=== PATIENT | female | born 1985 | race Caucasian/White ===

== ENCOUNTER 2017-08-01 20:33 | Emergency (ER) | payer MEDICAID, OTHER, SELFPAY ==
[~2017-08-01] VITALS: Ht 172.7 cm; Wt 62.9 kg
[2017-08-01] MEDS ORDERED: ALBUTEROL/IPRATROPIUM 2.5MG/0.5MG, 3 ML ONE (21:00)
[2017-08-01] MEDS ORDERED: ALBUTEROL/IPRATROPIUM 2.5MG/0.5MG, 3 ML NPPB SCH (21:00)
[2017-08-01 21:35] VITALS: BP 94/63
== END 2017-08-01 21:36 | disposition home or self-care (01) ==
LOC: ED 21:02
DX: J45.41 Moderate persistent asthma with (acute) exacerbation (principal)
CPT/HCPCS: 93005; 94640; 99283; J7512; J7620

== ENCOUNTER 2017-12-18 23:08 | Emergency (ER) | payer MEDICAID ==
[~2017-12-18] VITALS: Ht 172.7 cm; Wt 66.0 kg
[2017-12-18] MEDS ORDERED: PROAIR (23:23)
[2017-12-19 00:29] VITALS: BP 97/58
== END 2017-12-19 01:24 | disposition home or self-care (01) ==
LOC: ED 23:59
DX: J45.41 Moderate persistent asthma with (acute) exacerbation (principal); F17.200 Nicotine dependence, unspecified, uncomplicated
CPT/HCPCS: 71046; 93005; 99284; J7512

== ENCOUNTER 2018-01-07 00:03 | Inpatient (IN) | payer MEDICAID ==
[~2018-01-07] VITALS: Ht 165.1 cm; Wt 70.7 kg
[~2018-01-07 00:03] MED LIST: PROAIR
[2018-01-07] MEDS ORDERED: methylPREDNISolone SOD SUCC 125 MG/2 ML ONE (00:28)
[2018-01-07] MEDS ORDERED: methylPREDNISolone SOD SUCC 125 MG/2 ML IVP ONE (00:30)
[2018-01-07] MEDS ORDERED: ALBUTEROL/IPRATROPIUM 2.5MG/0.5MG, 3 ML NPPB SCH (00:30)
[2018-01-07] MEDS ORDERED: ALBUTEROL SULFATE 2.5 MG/3 ML ONE (00:48)
[2018-01-07] MEDS ORDERED: HYDROcodone/APAP 5/325 TABLET ONE (00:57)
[2018-01-07] MEDS ORDERED: HYDROcodone/APAP 5/325 TABLET PO ONE (01:00)
[2018-01-07] MEDS ORDERED: SODIUM CHLORIDE 0.9% 1,000ML IVBOLUS ONE (01:30)
[2018-01-07 01:36] LABS: MEAN CORPUSCULAR HEMOGLOBIN 31.4 pg (27.0-34.8); MEAN CORPUSCULAR HGB CONC 32.9 g/dL (32.4-35.8); MEAN CORPUSCULAR VOLUME 95.5 fL (80-100); MEAN PLATELET VOLUME 8.6 fL (7.4-10.4); PLATELET COUNT 299 x10^3/uL (130-400); RED BLOOD COUNT 4.43 x10^6/uL (3.82-5.3); RED CELL DISTRIBUTION WIDTH 13.3 % (9.6-15.2)
[2018-01-07 01:44] LABS: CHLORIDE 110 mmol/L (98-107)
[2018-01-07 01:45] LABS: ALBUMIN 3.3 g/dL (3.4-5.0); ANION GAP 6 mmol/L (5-15); CALCIUM 8.5 mg/dL (8.5-10.1); CREATININE 0.84 mg/dL (0.55-1.02)
[2018-01-07 01:50] LABS: BASOPHILS # (AUTO) 0.11 x10^3/uL (0-0.1); BASOPHILS % (AUTO) 1 % (0-1); EOSINOPHILS # (AUTO) 1.79 x10^3/uL (0-0.4); EOSINOPHILS % (AUTO) 13 % (1-7); LYMPHOCYTES # (AUTO) 3.53 x10^3/uL (1-3.4); LYMPHOCYTES % (AUTO) 26 % (22-44); MD SCAN; MONOCYTES % (AUTO) 9 % (2-9); NEUTROPHILS # (AUTO) 7.09 x10^3/uL (1.8-6.8); NEUTROPHILS % (AUTO) 52 % (42-75)
[2018-01-07] MEDS ORDERED: CEFTRIAXONE PMX 1GM/50ML 50 ML ONE (02:48)
[2018-01-07] MEDS ORDERED: CEFTRIAXONE PMX 1GM/50ML 50 ML IV ONE (03:00)
[2018-01-07] MEDS ORDERED: AZITHROMYCIN 500 MG in SODIUM CHLORIDE 0.9% 250 ML IV ONE (03:00)
[2018-01-07 03:30] VITALS: BP 100/68
[2018-01-07] MEDS ORDERED: hydrALAzine 20 MG/ML, 1ML IVPush PRN (04:30)
[2018-01-07] MEDS ORDERED: ONDANSETRON 2MG/ML, 2ML IVPush PRN (04:30)
[2018-01-07] MEDS ORDERED: ALBUTEROL SULFATE 2.5 MG/3 ML NPPB PRN ×2 (04:30)
[2018-01-07] MEDS ORDERED: HYDROcodone/APAP 5/325 TABLET PO PRN (04:30)
[2018-01-07] MEDS ORDERED: CEFTRIAXONE PMX 1GM/50ML 50 ML IV SCH (04:30)
[2018-01-07] MEDS ORDERED: ACETAMINOPHEN 325 MG TABLET PO PRN (04:30)
[2018-01-07] MEDS ORDERED: POLYETHYLENE GLYCOL 17 GM PACKET PO PRN (04:30)
[2018-01-07] MEDS ORDERED: MONTELUKAST 10 MG TABLET PO SCH (04:30)
[2018-01-07] MEDS ORDERED: ENOXAPARIN 40 MG/0.4 ML SQ SCH (04:30)
[2018-01-07] MEDS ORDERED: GUAIFENESIN/DM 200-20MG, 10ML UDC PO PRN (04:30)
[2018-01-07] MEDS ORDERED: ALBUTEROL/IPRATROPIUM 2.5MG/0.5MG, 3 ML NPPB PRN (04:30)
[2018-01-07] MEDS ORDERED: AZITHROMYCIN 500 MG in SODIUM CHLORIDE 0.9% 250 ML IV SCH (04:30)
[2018-01-07] MEDS: SODIUM CHLORIDE 0.9% 1,000 ML IV SCH ×2 (04:58→15:11)
[2018-01-07 07:15] VITALS: BP 101/66
[2018-01-07] MEDS: ALBUTEROL SULFATE 2.5 MG/3 ML NPPB SCH ×6 (07:40→18:23)
[2018-01-07 09:06] VITALS: BP 97/58
[2018-01-07] MEDS: methylPREDNISolone SOD SUCC 40 MG/ML IVPush SCH ×2 (09:06→15:12)
[2018-01-07 14:00] VITALS: BP 116/71
[2018-01-07 16:41] VITALS: BP 116/71
[2018-01-07] MEDS ORDERED: LORazepam 1MG TABLET PO PRN (18:00)
[2018-01-07 18:42] VITALS: BP 130/85
== END 2018-01-07 18:58 | disposition left against medical advice (07) | DRG 193 ==
LOC: ED 03:03 → EDIP 03:29 → 3NE 03:30
PROVIDERS: ADMIT Hospitalist; ATTEND Hospitalist
DX: J18.1 Lobar pneumonia, unspecified organism (principal); J96.01 Acute respiratory failure with hypoxia; J45.901 Unspecified asthma with (acute) exacerbation; F17.200 Nicotine dependence, unspecified, uncomplicated; Z88.8 Allergy status to other drugs, medicaments and biological substances
CPT/HCPCS: 36415; 71045; 80048; 82040; 83605; 84702; 85025; 87040; 93005; 94640; 94644; 96361; 96365; 96375; J0456; J0696; J7613; J7620; J2920; J2930; J7030; J7050

== ENCOUNTER 2018-04-23 20:12 | Emergency (ER) | payer MEDICAID ==
[~2018-04-23] VITALS: Ht 172.7 cm; Wt 64.2 kg
[2018-04-23] MEDS ORDERED: ALBUTEROL/IPRATROPIUM 2.5MG/0.5MG, 3 ML NPPB ONE (21:00)
[2018-04-23 22:24] VITALS: BP 115/74
== END 2018-04-23 22:53 | disposition home or self-care (01) ==
LOC: ED 22:52
DX: J45.41 Moderate persistent asthma with (acute) exacerbation (principal); R09.02 Hypoxemia
CPT/HCPCS: 71046; 94640; 99284; J7512; J7620

== ENCOUNTER 2018-08-09 20:53 | Inpatient (IN) | payer MEDICAID ==
[~2018-08-09] VITALS: Ht 172.7 cm; Wt 68.5 kg
[2018-08-09] MEDS ORDERED: ALBUTEROL SULFATE 2.5 MG/3 ML ONE (21:10)
[2018-08-09] MEDS ORDERED: ALBUTEROL 0.5%, 20ML ONE (21:20)
--- NOTE | 2018-08-09 21:20 | NUR ---
RT AT BEDSIDE
[2018-08-09] MEDS ORDERED: ALBUTEROL 0.5%, 20ML NPPBCONT ONE (21:30)
[2018-08-09] MEDS ORDERED: ALBUTEROL SULFATE 2.5 MG/3 ML NPPB ONE (21:30)
[2018-08-09] MEDS ORDERED: ALBUTEROL/IPRATROPIUM 2.5MG/0.5MG, 3 ML NPPB ONE (21:30)
[2018-08-09] MEDS ORDERED: KETOROLAC 30 MG/1 ML ONE (21:49)
[2018-08-09] MEDS ORDERED: MAGNESIUM SULFATE PMX 2GM/50ML 50 ML IV ONE (22:00)
[2018-08-09] MEDS ORDERED: KETOROLAC 30 MG/1 ML IVPush ONE (22:00)
[2018-08-09] MEDS ORDERED: MORPHINE SULFATE 4 MG/ML, 1ML IVPush ONE ×2 (22:00→22:30)
[2018-08-09] MEDS ORDERED: MORPHINE SULFATE 4 MG/ML, 1ML ONE (22:01)
[2018-08-09 22:09] LABS: MEAN CORPUSCULAR HEMOGLOBIN 31.2 pg (27.0-34.8); MEAN CORPUSCULAR HGB CONC 33.3 g/dL (32.4-35.8); MEAN CORPUSCULAR VOLUME 93.7 fL (80-100); MEAN PLATELET VOLUME 8.1 fL (7.4-10.4); PLATELET COUNT 301 x10^3/uL (130-400); RED BLOOD COUNT 4.85 x10^6/uL (3.82-5.3); RED CELL DISTRIBUTION WIDTH 13.9 % (9.6-15.2)
--- NOTE | 2018-08-09 22:09 | NUR ---
REPORT RECEIVED FROM NILO DAVIS, ASSUMING CARE OF PT AT THIS TIME. PT MOVED INTO TRAUMA FOR BIPAP. RT AT BEDSIDE. CONNECTED TO ALL MONITORING, RAPID RR, AND SLIGHT TACHY AT 105. MORPHINE GIVEN PER SEP, PT BEGINNING TO RELAX. PHARM CALLED FOR MAG DRIP. WILL CONTINUE TO MONITOR
[2018-08-09] MEDS ORDERED: ALBUTEROL (22:10)
--- NOTE | 2018-08-09 22:14 | NUR ---
PT RESTING COMFORTABLY IN BED, SLEEPING INTERMITTENTLY AT THIS TIME. VSS. WILL CONTINUE TO MONITOR
--- NOTE | 2018-08-09 22:18 | NUR ---
LATE ENTRY: PT WITH INCREASED RESPIRATORY EFFORT, SPEAKING IN ONE WORD SENTENCES. PT STATES SHE IS TIRED OF BREATHING. PT STATES PREVIOUS BIPAP AND FEELS LIKE SHE NEEDS IT AT THIS TIME. MD INFORMED. CHARGE INFORMED. PT MOVED TO T3 AND REPORT GIVEN TO MARIA EUGENIA VELAZQUEZ.
[2018-08-09 22:21] LABS: ANION GAP 6 mmol/L (5-15); CALCIUM 8.4 mg/dL (8.5-10.1); CHLORIDE 109 mmol/L (98-107); CREATININE 0.66 mg/dL (0.55-1.02)
--- NOTE | 2018-08-09 22:21 | NUR ---
PT TO BE ADMITTED TO CCU AT THIS TIME PER CHIARA BUTCHER AND HOSPITALIST. AWAITING BED ASSIGNMENT. MAG STARTED PER MAR
[2018-08-09] MEDS ORDERED: SODIUM CHLORIDE 0.9% 1,000ML IVBOLUS ONE (22:30)
[2018-08-09 22:38] LABS: MD YES
[2018-08-09 22:39] LABS: EOS#(MANUAL) 0.98 x10^3/uL (0.0-0.4); EOS% (MANUAL) 5 % (1-7); LYMPH#(MANUAL) 5.88 x10^3/uL (1-3.4); LYMPHS% (MANUAL) 30 % (22-44); MONOS#(MANUAL) 0.78 x10^3/uL (0.3-2.7); MONOS% (MANUAL) 4 % (2-9); SEG#(MANUAL) 11.96 x10^3/uL (1.8-6.8); SEGS% (MANUAL) 61 % (42-75)
[2018-08-09 22:40] LABS: <PLATELET ESTIMATE> ADEQUATE; <PLT MORPHOLOGY> NORMAL PLT MORPH; <RBC MORPHOLOGY> NORMAL
--- NOTE | 2018-08-09 22:40 | NUR ---
REPORT GIVEN TO MATT DAVIS
[2018-08-09] MEDS ORDERED: HYDROcodone/APAP 5/325 TABLET PO PRN (23:00)
[2018-08-09] MEDS ORDERED: hydrALAzine 20 MG/ML, 1ML IVPush PRN (23:00)
[2018-08-09] MEDS ORDERED: POLYETHYLENE GLYCOL 17 GM PACKET PO PRN (23:00)
[2018-08-09] MEDS ORDERED: ONDANSETRON ODT 4 MG PO PRN (23:00)
[2018-08-09] MEDS ORDERED: ONDANSETRON 2MG/ML, 2ML IVPush PRN (23:00)
[2018-08-09] MEDS ORDERED: DOCUSATE 100 MG CAPSULE PO PRN (23:00)
[2018-08-09] MEDS ORDERED: PROMETHAZINE 25 MG/ML, 1ML IM PRN (23:00)
[2018-08-09] MEDS ORDERED: ACETAMINOPHEN 325 MG TABLET PO PRN (23:00)
[2018-08-09] MEDS ORDERED: BISACODYL 10 MG SUPP PR PRN (23:00)
[2018-08-09] MEDS: HEPARIN 5,000 UNITS/ML, 1ML SQ SCH (23:29)
[2018-08-09] MEDS: SODIUM CHLORIDE 0.9% 1,000 ML IV SCH (23:29)
[2018-08-09] MEDS: methylPREDNISolone SOD SUCC 125 MG/2 ML IVPush SCH (23:29)
[2018-08-09 23:30] LABS: FREE T4 (FREE THYROXINE) 1.12 ng/dL (0.76-1.46)
[2018-08-09] MEDS: FAMOTIDINE 20 MG/2 ML IVPush SCH (23:30)
[2018-08-09 23:33] LABS: HEMOGLOBIN A1C 5.5 % (4.2-6.3)
[2018-08-09] MEDS: AZITHROMYCIN 500 MG in SODIUM CHLORIDE 0.9% 250 ML IV SCH (23:37)
[2018-08-10] MEDS ORDERED: ALBUTEROL/IPRATROPIUM 2.5MG/0.5MG, 3 ML NPPB PRN (00:30)
[2018-08-10] MEDS: morphine SULFATE 10 MG/ML, 1ML IVPush PRN ×2 (03:00→09:34)
[2018-08-10] MEDS: ALBUTEROL/IPRATROPIUM 2.5MG/0.5MG, 3 ML NPPB SCH ×7 (03:40→23:00)
[2018-08-10 03:52] VITALS: BP 109/70
[2018-08-10 04:00] VITALS: BP 93/59
[2018-08-10 05:07] LABS: MEAN CORPUSCULAR HEMOGLOBIN 31.5 pg (27.0-34.8); MEAN CORPUSCULAR HGB CONC 33.5 g/dL (32.4-35.8); MEAN PLATELET VOLUME 8.5 fL (7.4-10.4); PLATELET COUNT 216 x10^3/uL (130-400); RED BLOOD COUNT 4.49 x10^6/uL (3.82-5.3); RED CELL DISTRIBUTION WIDTH 14.4 % (9.6-15.2)
[2018-08-10 05:10] LABS: ALBUMIN 3.2 g/dL (3.4-5.0); ANION GAP 7 mmol/L (5-15); CALCIUM 7.7 mg/dL (8.5-10.1); CHLORIDE 112 mmol/L (98-107)
[2018-08-10 05:15] LABS: ALANINE AMINOTRANSFERASE 18 U/L (12-78); ALKALINE PHOSPHATASE 56 U/L (45-117); BILIRUBIN,TOTAL 0.6 mg/dL (0.2-1.0); CHOL/HDL RATIO 1.8; CHOLESTEROL, TOTAL 116 mg/dL (140-239); CREATININE 0.72 mg/dL (0.55-1.02); HDL CHOL % 54 % (28-40); HDL CHOLESTEROL (DIRECT) 63 mg/dL (40-60); LDL CHOLESTEROL,CALCULATED 44 mg/dL (54-169); LDL/HDL RATIO 0.7 (0.5-3.0); TOTAL PROTEIN 5.8 g/dL (6.4-8.2); TRIGLYCERIDES 47 mg/dL (50-200); VLDL CHOLESTEROL 9 mg/dL (0-25)
[2018-08-10] MEDS: methylPREDNISolone SOD SUCC 125 MG/2 ML IVPush SCH ×4 (05:34→23:40)
[2018-08-10 05:44] LABS: BASOPHILS # (AUTO) 0.02 x10^3/uL (0-0.1); BASOPHILS % (AUTO) 0 % (0-1); EOSINOPHILS # (AUTO) 0.06 x10^3/uL (0-0.4); EOSINOPHILS % (AUTO) 1 % (1-7); LYMPHOCYTES # (AUTO) 0.43 x10^3/uL (1-3.4); LYMPHOCYTES % (AUTO) 4 % (22-44); MD SCAN; MONOCYTES # (AUTO) 0.11 x10^3/uL (0.2-0.8); MONOCYTES % (AUTO) 1 % (2-9); NEUTROPHILS # (AUTO) 10.68 x10^3/uL (1.8-6.8); NEUTROPHILS % (AUTO) 95 % (42-75)
[2018-08-10 07:31] LABS: MICROSCOPIC NOT IND
[2018-08-10 07:35] LABS: CULTURE INDICATED? NO
[2018-08-10 08:56] LABS: RAPID INFLUENZA A Negative (Negative); RAPID INFLUENZA B Negative (Negative)
[2018-08-10] MEDS: SODIUM CHLORIDE 0.9% 1,000 ML IV SCH (09:34)
[2018-08-10] MEDS: HEPARIN 5,000 UNITS/ML, 1ML SQ SCH ×3 (09:34→21:51)
[2018-08-10] MEDS: FAMOTIDINE 20 MG/2 ML IVPush SCH ×2 (09:34→21:51)
[2018-08-10 09:44] LABS: FIO2 40 %
[2018-08-10] MEDS: BUDESONIDE 0.5 MG/2 ML INHA NPPB SCH ×2 (10:21→20:04)
[2018-08-10 11:36] LABS: AMPHETAMINE SCREEN, URINE Positive (Negative); BARBITURATE SCREEN, URINE Negative (Negative); BENZODIAZEPINE SCREEN, URINE Negative (Negative); CANNABINOID SCREEN, URINE Negative (Negative); COCAINE SCREEN, URINE Negative (Negative); METHADONE SCREEN, URINE Negative (Negative); OPIATE SCREEN, URINE Positive (Negative)
[2018-08-10 12:42] LABS: HCG UR SG 1.032 (1.003-1.030)
[2018-08-10 18:10] VITALS: BP 106/76
[2018-08-10] MEDS: AZITHROMYCIN 500 MG in SODIUM CHLORIDE 0.9% 250 ML IV SCH (23:40)
[2018-08-11] MEDS: ALBUTEROL/IPRATROPIUM 2.5MG/0.5MG, 3 ML NPPB SCH ×2 (03:00→07:50)
[2018-08-11 03:03] VITALS: BP 92/69
[2018-08-11 05:23] LABS: MEAN CORPUSCULAR HEMOGLOBIN 31.1 pg (27.0-34.8); MEAN CORPUSCULAR HGB CONC 33.4 g/dL (32.4-35.8); MEAN PLATELET VOLUME 8.7 fL (7.4-10.4); PLATELET COUNT 245 x10^3/uL (130-400); RED BLOOD COUNT 4.15 x10^6/uL (3.82-5.3); RED CELL DISTRIBUTION WIDTH 14.2 % (9.6-15.2)
[2018-08-11 05:29] LABS: ANION GAP 7 mmol/L (5-15); CALCIUM 8.5 mg/dL (8.5-10.1); CHLORIDE 112 mmol/L (98-107); CREATININE 0.69 mg/dL (0.55-1.02)
[2018-08-11] MEDS: methylPREDNISolone SOD SUCC 125 MG/2 ML IVPush SCH ×2 (05:49→11:35)
[2018-08-11] MEDS: HEPARIN 5,000 UNITS/ML, 1ML SQ SCH (05:49)
[2018-08-11 05:50] LABS: MD YES
[2018-08-11 05:52] LABS: <PLATELET ESTIMATE> ADEQUATE; <PLT MORPHOLOGY> NORMAL PLT MORPH; <RBC MORPHOLOGY> NORMAL; BAND#(MANUAL) 0.53 x10^3/uL; BANDS%(MANUAL) 2 % (0-7); LYMPH#(MANUAL) 0.27 x10^3/uL (1-3.4); LYMPHS% (MANUAL) 1 % (22-44); MONOS#(MANUAL) 0.53 x10^3/uL (0.3-2.7); MONOS% (MANUAL) 2 % (2-9); SEG#(MANUAL) 25.18 x10^3/uL (1.8-6.8); SEGS% (MANUAL) 95 % (42-75)
[2018-08-11] MEDS: BUDESONIDE 0.5 MG/2 ML INHA NPPB SCH (07:50)
[2018-08-11] MEDS: FAMOTIDINE 20 MG/2 ML IVPush SCH (08:34)
[2018-08-11 08:45] VITALS: BP 105/69
== END 2018-08-11 12:09 | disposition left against medical advice (07) | DRG 189 ==
LOC: ED 21:37 → EDIP 22:18 → CCU 22:49 → ICU 08-10 10:46 → 4NOR 08-10 18:05
PROVIDERS: ADMIT Internal Medicine; ATTEND Internal Medicine
PROC: 5A09357 Assistance with Respiratory Ventilation, Less than 24 Consecutive Hours, Continuous Positive Airway Pressure (ICD-10-PCS; principal; 2018-08-09)
DX: J96.01 Acute respiratory failure with hypoxia (principal); J45.42 Moderate persistent asthma with status asthmaticus; E87.2 Acidosis; D72.829 Elevated white blood cell count, unspecified; F15.10 Other stimulant abuse, uncomplicated; J96.02 Acute respiratory failure with hypercapnia; Z87.891 Personal history of nicotine dependence; Z88.8 Allergy status to other drugs, medicaments and biological substances; Z53.21 Procedure and treatment not carried out due to patient leaving prior to being seen by health care provider
CPT/HCPCS: 36415; 36600; 87400; 99291; J3490; J7620; J7626; 71045; 80048; 80053; 80061; 80307; 81003; 81025; 82803; 83036; 83735; 84100; 84439; 84443; 84702; 84703; 85025; 87081; 94640; 94644; 94660; 96365; 96375; G0378; J0456; J1644; J1885; J2270; J2930; J3475; J7030; J7050; J7512; Q0177

== ENCOUNTER 2019-08-23 16:40 | Emergency (ER) | payer MEDICAID ==
[~2019-08-23] VITALS: Ht 172.7 cm; Wt 66.6 kg
[~2019-08-23 16:40] MED LIST changes: +ALBUTEROL
[2019-08-23 18:12] LABS: MICROSCOPIC INDICATED
[2019-08-23 18:13] LABS: CULTURE INDICATED? YES
[2019-08-23 19:43] VITALS: BP 104/72
[2019-08-23] MEDS ORDERED: PHENAZOPYRIDINE 200 MG TABLET PO ONE (19:51)
[2019-08-23] MEDS ORDERED: PHENAZOPYRIDINE 200 MG TABLET ONE (19:57)
[2019-08-23] MEDS ORDERED: NITROFURANTOIN (MACROBID) 100 MG CAPSULE ONE (19:58)
[2019-08-23] MEDS ORDERED: NITROFURANTOIN (MACROBID) 100 MG CAPSULE PO ONE (20:00)
[2019-08-23] MEDS ORDERED: BUPR1FIL3 PO (20:05)
== END 2019-08-23 20:29 | disposition home or self-care (01) ==
LOC: ED 20:09
DX: N30.01 Acute cystitis with hematuria (principal); J45.909 Unspecified asthma, uncomplicated; Z87.891 Personal history of nicotine dependence
CPT/HCPCS: 81001; 87077; 87086; 87186; 99283

== ENCOUNTER 2021-02-17 02:14 | Outpatient (CLI) | payer SELFPAY ==
[~2021-02-17] VITALS: Ht 172.7 cm; Wt 90.0 kg
[~2021-02-17 02:14] MED LIST changes: +BUPR1FIL3 PO
[2021-02-17 02:48] LABS: MICROSCOPIC INDICATED
[2021-02-17 02:57] LABS: AMPHETAMINE SCREEN, URINE Negative (Negative); BARBITURATE SCREEN, URINE Negative (Negative); BENZODIAZEPINE SCREEN, URINE Negative (Negative); CANNABINOID SCREEN, URINE Positive (Negative); COCAINE SCREEN, URINE Negative (Negative); METHADONE SCREEN, URINE Negative (Negative); OPIATE SCREEN, URINE Negative (Negative)
[2021-02-17 03:00] VITALS: BP 105/63
== END 2021-02-17 04:38 | disposition home or self-care (01) ==
LOC: LDOP 02:14
PROVIDERS: ATTEND Obstetrics & Gynecology
DX: O26.892 Other specified pregnancy related conditions, second trimester (principal); R10.9 Unspecified abdominal pain; Z3A.24 24 weeks gestation of pregnancy; Z86.19 Personal history of other infectious and parasitic diseases
CPT/HCPCS: 80307; 81001; 87086; 99211; G0463